=== PATIENT | female | born 1995 | race Caucasian/White ===

== ENCOUNTER 2016-11-14 20:51 | Emergency (ER) | payer BC, MEDICAID ==
--- NOTE | 2016-11-14 21:09 | Emergency Department Record ---
History of Present Illness - General Chief complaint: ENT Stated complaint: EAR AND THROAT PAIN,COUGH Time Seen by Provider: 11/14/16 21:09 Source: Patient Mode of Arrival: Ambulatory Limitations: No limitations - History of Present Illness Initial comments: The patient is here due to a cough for 3 days and now with sharp R lateral rib pain with the coughing or deep breathing. She denies any L sided CP but has been having a deep hacking cough for 2 days. She also has had body aches, a low grade fever, ear pain and a ST. She did not get a flu shot this year and is on OCP's but is not a smoker. MD complaint: Other Onset/Timin -: Days(s) Location: R ear, L ear Severity scale (1-10): 10 Quality: Aching Consistency: Constant Associated Symptoms: Cough - Related Data Home Medications Medication Instructions Recorded Confirmed Last Taken Etonogestrel [Nexplanon] 68 mg SQ DAILY 11/14/16 11/14/16 11/14/16 Previous Rx's Medication Instructions Recorded Oseltamivir Phosphate [Tamiflu] 75 mg PO BID #9 capsule 11/14/16 Allergies Allergy/AdvReac Type Severity Reaction Status Date / Time No Known Drug Allergies Allergy Verified 11/14/16 20:56 Travel Screening - Travel/Exposure Within Last 30 Days Have you traveled within the last 30 days?: No - Travel Symptoms Symptom Screening: None Review of Systems Constitutional: Reports: Chills, Fever, Malaise Eyes: Denies: Eye discharge ENT: Reports: Congestion Respiratory: Reports: Cough. Denies: Dyspnea Past Medical History - SOCIAL HISTORY Smoking Status: Never smoker - RESPIRATORY Hx Respiratory Disorders: No - CARDIOVASCULAR Hx Cardio Disorders: No - NEURO Hx Neuro Disorders: No - GI Hx GI Disorders: No - Hx Genitourinary Disorders: No - ENDOCRINE Hx Endocrine Disorders: No - MUSCULOSKELETAL Hx Musculoskeletal Disorders: No - PSYCH Hx Psych Problems: No - HEMATOLOGY/ONCOLOGY Hx Hematology/Oncology Disorders: No Family Medical History Any Significant Family History?: Yes Hx Cancer: Grandparents Hx Resp Disorders: Mother, Children, Brother/Sister Physical Exam - General General Appearance: Alert, Oriented x3, Cooperative, No acute distress - Head Head exam: Atraumatic, Normocephalic, Normal inspection - Eye Eye exam: Normal appearance, PERRL - ENT ENT exam: Normal exam, Mucous membranes moist, Normal external ear exam, Normal orophraynx, TM's normal bilaterally Throat exam: Tonsillar erythema. negative: Normal inspection, Tonsillomegaly, Tonsillar exudate - Neck Neck exam: Normal inspection, Full ROM. negative: Lymphadenopathy, Meningismus , Tenderness - Respiratory Respiratory exam: Normal lung sounds bilaterally, Chest wall tenderness (The R lateral chest wall pain is very reproducible to palpation.). negative: Respiratory distress - Cardiovascular Cardiovascular Exam: Regular rate, Normal rhythm, Normal heart sounds, Tachycardia - GI/Abdominal GI/Abdominal exam: Soft, Normal bowel sounds. negative: Tenderness - Extremities Extremities exam: Normal inspection, Full ROM, Normal capillary refill. negative: Tenderness Course Vital Signs 11/14/16 20:59 Temperature 99.3 F Pulse Rate 134 H Respiratory 20 Rate Blood Pressure 129/69 Pulse Ox 98 - Reevaluation(s) Reevaluation #1: The patient is doing very well at this time. I explained to her that her lab tests are all WNL and her CT and CXR are neg also for any acute abnormality. I also did explain to her that I do believe she has Influenza due to having all the symptoms even though her nasal swab is Neg. There is no infiltrate on xray or CT so I strongly doubt a bacterial infection. We will start the patient on Tamiflu and discharge to home soon. 11/14/16 23:44 Medical Decision Making - Data Complexity MDM Data: Labs Ordered and/or Reviewed, X-Ray Ordered and/or Reviewed, EKG Ordered and/or Reviewed - Lab Data Result diagrams: 11/14/16 21:20 11/14/16 21:20 - EKG Data -: EKG Interpreted by Me EKG: No Acute Changes (Sinus tach at 118.) - Radiology Data Radiology results: Report reviewed (CT: Neg for PE or Infiltrate.) Disposition Disposition: Discharge Clinical Impression: Acute upper respiratory infection Disposition: Home, Self-Care Condition: (1) Good Instructions: Upper Respiratory Infection (ED) Additional Instructions: Please continue the Tamiflu and use Tylenol and Motrin for fever. Please see your PCP if not better in 2 days and return to the ER for any increased cough, temp > 103, or any trouble breathing. Prescriptions: Oseltamivir Phosphate [Tamiflu] 75 mg PO BID #9 capsule Forms: Patient Portal Access Time of Disposition: 23:54
[2016-11-14] MEDS: ACETAMINOPHEN 325 MG TAB PO ONE (21:21)
[2016-11-14] MEDS: 0.9 % SODIUM CHLORIDE 1,000 ML BAG IV ONE (21:31)
[2016-11-14 21:40] LABS: BASO % 0.1 % (0-6); EOS % 0.3 % (0-6); GRAN % 76.6 % (47-80); HEMATOCRIT 39.5 % (35.0-47.0); HEMOGLOBIN 12.9 gm/dl (11.6-16.0); LYMPH % 14.2 % (16-45); MEAN CELL VOLUME 89.2 fl (81-97); MEAN CORPUSCULAR HEMOGLOBIN 29.1 pg (27-33); MEAN CORPUSCULAR HGB CONC 32.7 g/dl (32-36); MEAN PLATELET VOLUME 9.9 fl (7.4-10.4); MONO % 8.8 % (0-9); PLATELET COUNT 197 K/uL (130-400); RED BLOOD COUNT 4.43 M/uL (3.80-5.40); RED CELL DISTRIBUTION WIDTH 12.2 % (11.5-14.5); WHITE BLOOD COUNT W/O DIFF 7.2 K/uL (4.2-12.2)
[2016-11-14 21:54] LABS: ANION GAP 13.4 (7-16); BLOOD UREA NITROGEN 13 mg/dL (7-17); CARBON DIOXIDE 24.6 mmol/L (22-30); CREATINE PHOSPHOKINASE 83 U/L (30-135); CREATININE 0.8 mg/dL (0.52-1.04); EST GLOMERULAR FILTRATION RATE > 60 ml/min; GLUCOSE,RANDOM 93 mg/dL (70-110)
[2016-11-14 22:04] LABS: INFLUENZA A NEGATIVE (NEGATIVE); INFLUENZA B NEGATIVE (NEGATIVE)
[2016-11-14 22:05] LABS: CKMB 0.4 ug/L (0-6); TROPONIN I < 0.012 ng/mL (0.00-0.034)
[2016-11-14] MEDS: IBUPROFEN 600 MG TABLET PO ONE (22:52)
[2016-11-14] MEDS: OSTELTAMIVIR 75 MG CAP PO ONE (23:54)
--- NOTE | 2016-11-20 14:51 | RADIOLOGY REPORT ---
EXAM: CHEST, TWO VIEWS HISTORY: COUGH. TECHNIQUE: PA and lateral views of the chest were obtained. Comparison: None. FINDINGS: The heart size is normal. The lungs appear expanded with no acute infiltrate seen. No pleural effusion or pneumothorax evident. There are probably periareolar ornamental devices bilaterally. IMPRESSION: THE CHEST APPEARS ESSENTIALLY NEGATIVE WITH NO DEFINITE ACUTE INFILTRATE IDENTIFIED. JOB NUMBER: [id number] MTDD
--- NOTE | 2016-11-20 15:03 | CT ANGIOGRAM REPORT ---
EXAM: CTA OF THE CHEST HISTORY: PAIN. TECHNIQUE: CTA of the chest was performed following IV administration of 80 ml of Omnipaque 350 contrast. Axial images were obtained with coronal and sagittal MIP reconstructions. Comparison: None. FINDINGS: The mediastinal vasculature enhances normally. There is no intraluminal filling defect to suggest pulmonary embolus. Negative for thoracic aortic aneurysm or dissection. The heart and pericardium are unremarkable. Limited evaluation of the upper abdomen is unremarkable. There is no mediastinal or hilar adenopathy. The osseous structures are grossly intact. No pneumothorax. The visualized airways are patent. Calcified granuloma in the right upper lobe. The lungs are otherwise clear. IMPRESSION: NEGATIVE FOR AN ACUTE INTRATHORACIC PROCESS. JOB NUMBER: [id number] [facility]
== END 2016-11-15 00:11 | disposition home or self-care (01) ==
LOC: ER 20:51
DX: J06.9 Acute upper respiratory infection, unspecified (principal); R05 Cough; R07.89 Other chest pain
CPT/HCPCS: 99284 ×2; 82550; 85025; 82553; 84484; 80048; 84703; 87400; 85379; 71020; 71275; 93005; 93010; Q9967; J7030